=== PATIENT | male | born 1955 | race Caucasian/White ===

== ENCOUNTER → 2019-11-27 17:12 | Outpatient (BNVA) | payer OTHER, SELFPAY | PROVIDERS: PCP Nurse Practitioner Family; Visit Provider Nurse Practitioner Family | DX: I10 Essential (primary) hypertension (principal); E55.9 Vitamin D deficiency, unspecified; E78.5 Hyperlipidemia, unspecified; M25.551 Pain in right hip; M25.561 Pain in right knee; G89.29 Other chronic pain; M54.41 Lumbago with sciatica, right side | CPT/HCPCS: 80053; 80061; 82306; 83036; 84443; 85025 ==